=== PATIENT | female | born 2000 | race Caucasian/White ===

== ENCOUNTER 2018-01-10 23:29 | Emergency (ER) | payer BC ==
[~2018-01-10] VITALS: Ht 157.5 cm; Wt 65.7 kg
[~2018-01-10 23:29] MED LIST: MOTRIN800 MG PO; NORCO 5/3251 TABLET PO
[2018-01-11 00:09] LABS: HEMATOCRIT 40.6 % (36.0-46.0); HEMOGLOBIN 14.4 G/DL (11.9-15.5); MCH 32.6 PG (29.0-34.0); MCHC 35.5 G/DL (30.0-36.0); MCV 91.9 FL (83-99); PLATELET COUNT 177 K/uL (156-360); RBC DIS.WIDTH-CV 12.6 % (11.8-14.6); RBC DIS.WIDTH-SD 42.5 % (39-53); RED BLOOD COUNT 4.42 M/uL (3.80-5.20); WHITE BLOOD COUNT 7.1 K/uL (4.1-10.2)
[2018-01-11 00:19] LABS: CHLORIDE 104 mEq/L (99-109); SODIUM 141 mEq/L (136-147)
[2018-01-11 00:20] LABS: GLUCOSE 151 mg/dL (70-99)
[2018-01-11 00:24] LABS: CREATININE 0.9 mg/dL (0.6-1.3); GFR ESTIMATE (CALCULATED) > 59 mL/min/
[2018-01-11 00:25] LABS: UREA NITROGEN (BUN) 10 mg/dL (9-23)
[2018-01-11 00:30] LABS: TROP-I INTERPRETATION NEGATIVE; TROPONIN-I 0.01 ng/mL (0.0-0.30)
[2018-01-11 02:33] LABS: MAGNESIUM 2.1 mg/dL (1.3-2.7)
[2018-01-11 02:38] LABS: PHOSPHORUS 2.4 mg/dL (2.5-4.9)
[2018-01-11 02:46] LABS: QUANTITATIVE HCG < 4.0 MIU/ML
[2018-01-11 03:38] LABS: APPEARANCE CLEAR ((CLEAR)); BILIRUBIN NEGATIVE; BLOOD SMALL; COLOR STRAW ((YELLOW)); GLUCOSE (STRIP) NEGATIVE; KETONES 5; LEUKOCYTES NEGATIVE; NITRITE NEGATIVE; PROTEIN (STRIP) NEGATIVE; SPECIFIC GRAVITY 1.004 (1.000-1.030); UROBILINOGEN 0.2 MG/DL (0.2-1.0)
[2018-01-11 03:41] LABS: BACTERIA RARE /HPF; EPITHELIAL CELLS RARE /HPF; MUCUS NONE SEEN /LPF; RED BLOOD CELLS 0-5 /HPF (0-5); UCUL ADDED? NO; WHITE BLOOD CELLS 0-5 /HPF (0-5)
[2018-01-11] MEDS ORDERED: TORADOL10 MG PO (05:32)
[2018-01-11 05:54] VITALS: BP 120/67
== END 2018-01-11 05:54 | disposition home or self-care (01) ==
LOC: EME 23:29
PROVIDERS: Emergency Medicine
DX: R07.89 Other chest pain (principal); K29.00 Acute gastritis without bleeding; I49.8 Other specified cardiac arrhythmias; I45.4 Nonspecific intraventricular block; R94.31 Abnormal electrocardiogram [ECG] [EKG]; F32.9 Major depressive disorder, single episode, unspecified; Z87.891 Personal history of nicotine dependence
CPT/HCPCS: 71046; 71275; 74177; 80048; 81003; 83735; 84100; 84484; 84702; 85027; 85379; 87502; 93005; 99281; 99285; J1885; J2405; J7030